=== PATIENT | male | born 1995 | race African-American/Black ===

== ENCOUNTER 2022-08-09 10:07 | Emergency (ER) | payer MEDICAID ==
[2022-08-09] VITALS (9 sets, daily range): BP systolic 118–134; BP diastolic 77–89
[~2022-08-09] VITALS: Ht 160 cm; Wt 55.0 kg
[2022-08-09 11:01] LABS: BASO% 0.5 % (0-3); EOS% 0.7 % (0-8); HEMATOCRIT 44.8 % (39.0-50.0); HEMOGLOBIN 14.3 g/dl (14.0-18.0); MEAN CELL VOLUME 91.1 fL CALC (80.0-100.0); MEAN CORPUSCULAR HGB 29.1 pG CALC (26.0-32.0); MEAN CORPUSCULAR HGB CONC 31.9 g/dL CAL (32.0-36.0); MONO% 7.5 % (2-13); NEUT# 2.13 thou/uL (1.82-7.42); NEUT% 48.3 % (42-76); RED BLOOD COUNT 4.92 mill/uL (4.70-6.10); RED CELL DISTRI WIDTH 12.5 % (11.5-15.5)
[2022-08-09 11:05] LABS: ALBUMIN 4.7 g/dL (3.2-5.0); ALKALINE PHOSPHATASE 70 u/l (38-126); ANION GAP 12 (6-22 (CALC)); BILIRUBIN, TOTAL 0.5 mg/dL (0.2-1.3); BUN 7 mg/dL (9-20); BUN/CREATININE RATIO 8 (12-20 (CALC)); CARBON DIOXIDE 31 mmol/l (22-30); CHLORIDE 102 mmol/l (95-108); CREATININE 0.8 mg/dL (0.7-1.3); GFR FOR AFR.AMER. > 60 ML/MIN (>=60 (CALC)); GFR OTHER RACES > 60 ML/MIN (>=60 (CALC)); POTASSIUM 4.1 mmol/l (3.5-5.1); SGOT/AST 30 u/l (17-59); SODIUM 140 mmol/l (137-146); TOTAL PROTEIN 7.9 g/dL (6.3-8.2)
[2022-08-09 11:42] LABS: URINE BILIRUBIN - DIPSTICK NEGATIVE (NEGATIVE); URINE BLOOD DIPSTICK NEGATIVE (NEGATIVE); URINE COLOR YELLOW; URINE GLUCOSE - DIPSTICK NEGATIVE (NEGATIVE); URINE KETONE NEGATIVE (NEGATIVE); URINE LEUK ESTERASE NEGATIVE (NEGATIVE); URINE NITRITE - DIPSTICK NEGATIVE (Negative); URINE PROTEIN - DIPSTICK NEGATIVE (NEG-TRACE); URINE SPECIFIC GRAVITY 1.015; URINE UROBILINOGEN - DIPSTICK 0.2 E.U./dL (0.2)
== END 2022-08-09 15:02 | disposition home or self-care (01) ==
LOC: ED 10:07
PROVIDERS: Family Medicine
DX: R07.9 Chest pain, unspecified (principal); L29.0 Pruritus ani; R13.10 Dysphagia, unspecified; K30 Functional dyspepsia

== ENCOUNTER 2024-02-01 09:11 | Day surgery (SDC) | payer OTHER ==
[~2024-02-01] VITALS: Ht 160 cm; Wt 58.5 kg
[~2024-02-01 09:11] MED LIST: OMEPRAZOLE DR40 MG PO
[2024-02-01] MEDS ORDERED: FAMOTIDINE 10MG/ML 2ML SDV IV ONE (09:31)
[2024-02-01] MEDS ORDERED: LACTATED RINGER'S 1,000 ML IV ONE ×2 (09:31→10:49)
[2024-02-01 12:37] VITALS: BP 123/78
[2024-02-01] MEDS ORDERED: GLYCOPYRROLATE 0.2 MG/ML IV ONE (13:57)
[2024-02-01] MEDS ORDERED: PROPOFOL 200 MG/20 ML VIAL IV ONE (13:57)
[2024-02-01] MEDS ORDERED: LIDOCAINE HCL 2% 2ML SDV IV ONE (13:57)
== END 2024-02-01 12:33 | disposition home or self-care (01) | DRG 392 ==
LOC: ENDO 09:11 → ORM 12:05 → ENDO 12:33 → ORM 13:15
PROVIDERS: ATTEND Surgery
PROC: 0DB48ZX Excision of Esophagogastric Junction, Via Natural or Artificial Opening Endoscopic, Diagnostic (ICD-10-PCS; principal; 2024-02-01)
PROC: 0DB78ZX Excision of Stomach, Pylorus, Via Natural or Artificial Opening Endoscopic, Diagnostic (ICD-10-PCS; 2024-02-01)
PROC: 0DB68ZX Excision of Stomach, Via Natural or Artificial Opening Endoscopic, Diagnostic (ICD-10-PCS; 2024-02-01)
DX: K21.9 Gastro-esophageal reflux disease without esophagitis (principal); K29.70 Gastritis, unspecified, without bleeding; K22.9 Disease of esophagus, unspecified; E78.5 Hyperlipidemia, unspecified; Z79.899 Other long term (current) drug therapy